=== PATIENT | male | born 1970 ===

== ENCOUNTER 2017-12-01 23:33 | Emergency (ER) | payer SELFPAY ==
[2017-12-01 23:37] VITALS: BMI 40.6
[2017-12-01] MEDS ORDERED: Albuterol-Ipratrop 3 mg / 0.5 (3 ml) UD INH STA ×3 (23:37→23:42)
[2017-12-01] MEDS ORDERED: Sodium Chloride 0.9% 1,000 ML IV STA (23:37)
[2017-12-01] MEDS ORDERED: DiphenhydrAMINE 50 mg/ml Inj IV STA (23:37)
[2017-12-01 23:40] VITALS: BP 116/69; PULSE 121; RESP 22; O2SAT 96
[2017-12-01 23:56] LABS: BASO # 0.1 K/uL (0.0-0.2); BASO % 0.5 % (0.0-2.0); EOS # 0.5 K/uL (0.0-0.7); EOS % 4.7 % (0.0-4.0); HEMOGLOBIN 15.6 g/dL (12.0-18.0); LYMPH # 4.9 K/uL (1.0-4.3); LYMPH % 43.5 % (20.0-40.0); MEAN CELL VOLUME 91.3 fl (80.0-94.0); MEAN CORPUSCULAR HEMOGLOBIN 29.7 pg (27.0-31.0); MEAN CORPUSCULAR HGB CONC 32.5 g/dL (33.0-37.0); MEAN PLATELET VOLUME 8.2 fl (7.2-11.7); MONO # 0.8 K/uL (0.0-0.8); MONO % 6.9 % (0.0-10.0); NEUT # 5.1 K/uL (1.8-7.0); NEUT % 44.4 % (50.0-75.0); RBC 5.24 Mil/uL (4.40-5.90); RED CELL DISTRIBUTION WIDTH 14.3 % (11.5-14.5); WHITE BLOOD COUNT 11.4 K/uL (4.8-10.8)
[2017-12-02 00:05] LABS: ALB/GLOB RATIO 1.1 (1.0-2.1); ALBUMIN 4.3 g/dL (3.5-5.0); CALCIUM 8.6 mg/dL (8.4-10.2); GFR AFRICAN-AMERICAN > 60; GFR NON-AFRICAN AMERICAN > 60
[2017-12-02 00:07] LABS: ALT/SGPT 69 U/L (21-72); AST/SGOT 57 U/L (17-59); BLOOD UREA NITROGEN 17 mg/dl (9-20)
--- NOTE | 2017-12-02 00:39 | ED PDOC ---
HPI: Allergic Reaction Time Seen by Provider: 12/01/17 23:35 Chief Complaint (Nursing): Allergic Reaction Chief Complaint (Provider): Allergic reaction History Per: Patient History/Exam Limitations: no limitations Onset/Duration Of Symptoms: Hrs ([employer]) Current Symptoms Are (Timing): Still Present Possible Cause: Food (Bath fruit) Associated Symptoms: Skin Rash, Swelling (facial), Dyspnea, Itching Additional History Per: EMS Additional Complaint(s): Qamar Chung is a 46 year old male, with a past medical history of asthma and known allergies to bananas and apples, who was brought to the emergency department via EMS for a developed acute onset shortness of breath associated with diffused rash and facial swelling after he ate a fruit which is called Bath. Patient reports asthma has been worst in the past few days. He describes a cough and chest tightness. He used albuterol inhaler with no relief of symptoms. He denies any other medical complaints. PMD: None provided. Past Medical History Reviewed: Historical Data, Nursing Documentation, Vital Signs Vital Signs: Last Vital Signs Temp Pulse 121 H 12/01/17 23:36 Resp 22 12/01/17 23:36 BP 116/69 12/01/17 23:36 Pulse Ox 96 12/01/17 23:36 - Medical History PMH: Asthma - Surgical History Surgical History: No Surg Hx - Family History Family History: States: Unknown Family Hx - Social History Current smoker - smoking cessation education provided: No Alcohol: None Drugs: Denies - Home Medications Home Medications: Ambulatory Orders Medication Instructions Recorded Cetirizine HCl [Zyrtec] 10 mg PO QAM #10 capsule 12/02/17 Epinephrine HCl [Epipen 0.3 mg MR PRN PRN #1 12/02/17 Auto-Injector] Famotidine [Pepcid] 20 mg PO Q12 #14 tab 12/02/17 Methylprednisolone [Medrol Dosepak] 4 mg PO ASDIR #1 pkg 12/02/17 - Allergies Allergies/Adverse Reactions: Allergies Allergy/AdvReac Type Severity Reaction Status Date / Time apple Allergy Verified 12/01/17 23:37 banana Allergy Verified 12/01/17 23:37 Review of Systems ROS Statement: Except As Marked, All Systems Reviewed And Found Negative Constitutional: Positive for: Other (facial swelling) Respiratory: Positive for: Cough, Shortness of Breath Skin: Positive for: Rash (itchy) Physical Exam - Reviewed Nursing Documentation Reviewed: Yes Vital Signs Reviewed: Yes - Physical Exam Appears: Positive for: In Acute Distress (moderate) Head Exam: Positive for: ATRAUMATIC, NORMOCEPHALIC. Negative for: NORMAL INSPECTION (facial swelling ) Skin: Positive for: Normal Color, Warm, Dry, Rash (diffused urticarial rash noted) Eye Exam: Positive for: Normal appearance, EOMI, PERRL ENT: Positive for: Normal ENT Inspection Neck: Positive for: Normal, Painless ROM, Supple Cardiovascular/Chest: Positive for: Regular Rate, Rhythm. Negative for: Murmur Respiratory: Positive for: Wheezing (b/l expiratory with decreased air entry) Gastrointestinal/Abdominal: Positive for: Normal Exam, Soft. Negative for: Tenderness, Guarding, Rebound Back: Positive for: Normal Inspection. Negative for: L CVA Tenderness, R CVA Tenderness, Vertebral Tenderness Extremity: Positive for: Normal ROM. Negative for: Pedal Edema, Deformity, Swelling Neurologic/Psych: Positive for: Alert, Oriented - Laboratory Results Result Diagrams: 12/01/17 23:53 12/01/17 23:53 - ECG O2 Sat by Pulse Oximetry: 96 (RA) Pulse Ox Interpretation: Normal - Critical Care Total Time (In Min): 30 Disposition - Clinical Impression Clinical Impression: Anaphylaxis - Disposition Referrals: Tashi Mckay MD [Staff Provider] - Disposition Time: 01:30 Condition: IMPROVED Prescriptions: Cetirizine HCl [Zyrtec] 10 mg PO QAM #10 capsule Epinephrine HCl [Epipen Auto-Injector] 0.3 mg MR PRN PRN #1 PRN Reason: Anaphylaxis Famotidine [Pepcid] 20 mg PO Q12 #14 tab Methylprednisolone [Medrol Dosepak] 4 mg PO ASDIR #1 pkg Instructions: Food Allergy (ED), Anaphylaxis (ED) Forms: [employer] (Turkish) Print Language: LATVIAN Medical Decision Making Medical Decision Making: Initial Impression: 46 y/o male w/ acute anaphylactic reaction. Initial Plan: --EKG --Duoneb 3 ml INH --Benadryl 75 mg IV --Pepcid 40 mg IV --SOLU-medrol 125 mg IVP --Sodium Chloride 1,000 ml IV 1,000 mls/hr --Peak flow pre/post Tx --reevaluation 01:28 --Patient reports markedly improvement of symptoms. Pt was diagnosed with anaphylaxis. Condition improved. --Reviewed need for patient to abstain from (Passion Fruit). 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 Scribe Attestation: Documented by David Hinton, acting as a scribe for Chaitanya Rudd MD Provider Scribe Attestation: All medical record entries made by the Scribe were at my direction and personally dictated by me. I have reviewed the chart and agree that the record accurately reflects my personal performance of the history, physical exam, medical decision making, and the department course for this patient. I have also personally directed, reviewed, and agree with the discharge instructions and disposition.
== END 2017-12-02 01:45 | disposition home or self-care (01) ==
LOC: H.ER 23:33
DX: T78.2XXA Anaphylactic shock, unspecified, initial encounter (principal); J45.909 Unspecified asthma, uncomplicated
CPT/HCPCS: 80053; 85025; 96374; 99283; J1200; J2930; J7040